=== PATIENT | female | born 1990 | race Caucasian/White ===

== ENCOUNTER 2018-02-18 07:25 | Emergency (ER) | payer OTHER ==
[~2018-02-18] VITALS: Ht 170.2 cm; Wt 71.3 kg
[2018-02-18 07:27] VITALS: BP 143/88
[2018-02-18] MEDS ORDERED: DIPH,PERTUSS(ACELL),TET VAC/PF 0.5 ML IM-VACC ONE ×2 (07:52→08:00)
== END 2018-02-18 08:37 | disposition home or self-care (01) ==
LOC: ED 08:31
DX: S91.111A Laceration without foreign body of right great toe without damage to nail, initial encounter (principal); W26.8XXA Contact with other sharp object(s), not elsewhere classified, initial encounter; W45.8XXA Other foreign body or object entering through skin, initial encounter; Y93.89 Activity, other specified; Y92.009 Unspecified place in unspecified non-institutional (private) residence as the place of occurrence of the external cause; Y99.8 Other external cause status
CPT/HCPCS: 90471; 90715; 99283

== ENCOUNTER → 2018-08-01 | Outpatient (CLI) | payer OTHER ==
[~2018-08-01] MED LIST: LIDOCAINE 1%, 20ML ONE; LIDOCAINE-MPF 1%, 5ML ONE; ROPivacaine/PF 0.2%, 10 ML ONE; TRIAMCINOLONE ACETONIDE 40 MG/ML, 1ML ONE
== END | disposition home or self-care (01) ==
LOC: RAD 12:46
PROVIDERS: ATTEND Family Medicine Sports Medicine
DX: M16.11 Unilateral primary osteoarthritis, right hip (principal); M25.751 Osteophyte, right hip; R60.0 Localized edema; Q74.2 Other congenital malformations of lower limb(s), including pelvic girdle
CPT/HCPCS: 73525; 73722; J2795; J3301; J3490

== ENCOUNTER 2020-02-12 07:30 | Outpatient (CLI) | payer OTHER | END 2020-02-12 23:59 | disposition home or self-care (01) | LOC: RAD 07:30 | PROVIDERS: ATTEND Radiology Diagnostic Radiology | DX: Z47.1 Aftercare following joint replacement surgery (principal); Z96.641 Presence of right artificial hip joint ==

== ENCOUNTER → 2020-04-02 | Outpatient (CLI) | payer OTHER | END | disposition home or self-care (01) | LOC: RAD 11:31 | PROVIDERS: ATTEND Family Medicine | DX: M16.32 Unilateral osteoarthritis resulting from hip dysplasia, left hip (principal); Q65.4 Congenital partial dislocation of hip, bilateral; Q65.89 Other specified congenital deformities of hip; Z96.641 Presence of right artificial hip joint | CPT/HCPCS: 73523 ==